=== PATIENT | female | born 2000 | race Caucasian/White ===

== ENCOUNTER 2023-08-10 22:14 | Emergency (ER) | payer BC ==
[2023-08-10 22:26] VITALS: PULSE 89; RESP 18
== END 2023-08-10 23:50 | disposition left against medical advice (07) ==
LOC: ER 22:14
DX: R51.9 Headache, unspecified (principal); M54.2 Cervicalgia; Z53.21 Procedure and treatment not carried out due to patient leaving prior to being seen by health care provider
CPT/HCPCS: 99281